=== PATIENT | male | born 1950 | race Hispanic/Latino ===

== ENCOUNTER 2020-10-14 18:16 | Observation (INO) | payer OTHER, MEDICARE ==
[~2020-10-14] VITALS: Ht 167.6 cm; Wt 98.5 kg
[2020-10-14] MEDS ORDERED: NITROGLYCERIN 1GM/1 INCH PACKET TD ONE ×2 (18:49→21:00)
[2020-10-14] MEDS ORDERED: ASPIRIN 325 MG TABLET ONE (18:49)
[2020-10-14] MEDS ORDERED: NIFEDIPINE 10 MG CAP ONE (18:50)
[2020-10-14 18:52] LABS: APPEARANCE,URINE Clear (CLEAR); BILIRUBIN,URINE Negative (NEGATIVE); COLOR,URINE Yellow (YELLOW); GLUCOSE, URINE (UA) TRACE mg/dL (NEGATIVE); KETONES,URINE Negative (NEGATIVE); LEUKOCYTE ESTERASE ,URINE Negative (NEGATIVE); NITRATE,URINE Negative (NEGATIVE); OCCULT BLOOD,URINE Negative (NEGATIVE); PH,URINE 7.5 (5.0-8.0); PROTEIN,URINE Negative (NEGATIVE)
[2020-10-14 19:07] LABS: BASOPHILS % (AUTO) 0.8 % (0.0-5.0); EOSINOPHILS % (AUTO) 4.9 % (0.0-8.0); HEMATOCRIT 41.6 % (42-54); LYMPHOCYTES % (AUTO) 32.2 % (21.0-51.0); MEAN CORPUSCULAR HEMOGLOBIN 31.7 pg (27.0-33.0); MEAN CORPUSCULAR HGB CONC 35.3 g/dL (32.0-36.0); MEAN CORPUSCULAR VOLUME 89.7 fL (79-99); MONOCYTES % (AUTO) 8.4 % (3.0-13.0); NEUTROPHILS % (AUTO) 52.7 % (40.0-77.0); PLATELET COUNT (AUTO) 199 K/uL (130-400); RED BLOOD CELL COUNT(AUTO) 4.64 MIL/uL (4.50-6.20); RED CELL DISTRIBUTION WIDTH 12.2 % (11.0-15.5); WHITE BLOOD COUNT (AUTO) 10.5 K/uL (4.8-10.8)
[2020-10-14 19:11] LABS: BACTERIA,URINE None Seen /HPF (None Seen); MUCUS,URINE Few LPF (None Seen); RBC,URINE 0-1 /HPF (0-1); SQUAMOUS EPITHELIAL CELL,UR Few /HPF (0-2); WBC,URINE 0-1 /HPF (0-1)
[2020-10-14 19:14] LABS: CREATININE 1.4 mg/dL (0.5-1.5); POTASSIUM 3.9 mmol/L (3.5-5.1)
[2020-10-14 19:23] LABS: PROTHROMBIN TIME 10.9 SEC (9.6-11.6)
[2020-10-14 19:26] LABS: ALBUMIN 3.7 g/dL (3.5-5.0); BILIRUBIN,TOTAL 0.8 mg/dL (0.2-1.0); TOTAL PROTEIN, SERUM 8.1 g/dL (6.0-8.3)
[2020-10-14 19:43] LABS: B-TYPE NATRIURETIC PEPTIDE 18 pg/mL (0-100)
[2020-10-14] MEDS ORDERED: ONDANSETRON HCL 4 MG/2 ML VIAL IV PRN (20:45)
[2020-10-14] MEDS ORDERED: LACTULOSE 20 GM/30 ML UDCUP PO PRN (20:45)
[2020-10-14] MEDS: NITROGLYCERIN 1GM/1 INCH PACKET TD SCH (20:45)
[2020-10-14] MEDS ORDERED: HYDRALAZINE HCL 20 MG/ML VIAL IV PRN (20:45)
[2020-10-14] MEDS ORDERED: ACETAMINOPHEN 325 MG TAB PO PRN ×2 (20:45)
[2020-10-14 20:58] LABS: HEMOGLOBIN A1C 7.6 % (4.0-6.0)
[2020-10-14] MEDS ORDERED: FAMOTIDINE 20MG TAB 20 MG TAB ONE (20:59)
[2020-10-14] MEDS: METOPROLOL TARTRATE 25 MG TAB PO SCH (21:00)
[2020-10-14] MEDS ORDERED: METOPROLOL TARTRATE 25 MG TAB ONE (21:00)
[2020-10-14] MEDS: INSULIN HUMULIN R 100 UNIT/ML 3ML SQ SCH (21:00)
[2020-10-14 21:05] LABS: MAGNESIUM 1.7 mg/dL (1.80-2.40); THYROID STIMULATING HORMONE 4.59 uIU/mL (0.36-3.74)
[2020-10-14] MEDS ORDERED: MAGNESIUM 2GM PREMIX 50ML 50 ML IV PRN (21:30)
[2020-10-14] MEDS ORDERED: MAGNESIUM 2GM PREMIX 50ML 50 ML IV ONE (23:28)
[2020-10-15 02:30] VITALS: BP 147/89
[2020-10-15] MEDS ORDERED: METF-444 PO (02:48)
[2020-10-15] MEDS ORDERED: ATOR20TA65 PO (02:48)
[2020-10-15] MEDS ORDERED: LOSA50TA64 PO (02:48)
[2020-10-15] MEDS ORDERED: ASPI-1197 PO (02:48)
[2020-10-15 03:58] VITALS: BP 146/91
[2020-10-15] MEDS: NITROGLYCERIN 1GM/1 INCH PACKET TD SCH (05:22)
[2020-10-15] MEDS: INSULIN HUMULIN R 100 UNIT/ML 3ML SQ SCH ×2 (06:25→11:30)
[2020-10-15 06:50] LABS: BASOPHILS % (AUTO) 0.8 % (0.0-5.0); EOSINOPHILS % (AUTO) 4.7 % (0.0-8.0); HEMATOCRIT 40.8 % (42-54); LYMPHOCYTES % (AUTO) 31.8 % (21.0-51.0); MEAN CORPUSCULAR HEMOGLOBIN 30.7 pg (27.0-33.0); MEAN CORPUSCULAR HGB CONC 34.3 g/dL (32.0-36.0); MEAN CORPUSCULAR VOLUME 89.5 fL (79-99); MONOCYTES % (AUTO) 9.3 % (3.0-13.0); NEUTROPHILS % (AUTO) 52.9 % (40.0-77.0); PLATELET COUNT (AUTO) 192 K/uL (130-400); RED BLOOD CELL COUNT(AUTO) 4.56 MIL/uL (4.50-6.20); RED CELL DISTRIBUTION WIDTH 12.3 % (11.0-15.5); WHITE BLOOD COUNT (AUTO) 8.3 K/uL (4.8-10.8)
[2020-10-15 07:02] LABS: CREATININE 1.2 mg/dL (0.5-1.5); POTASSIUM 4.3 mmol/L (3.5-5.1)
[2020-10-15 07:30] VITALS: BP 150/89
[2020-10-15] MEDS ORDERED: FAMOTIDINE 20MG TAB 20 MG TAB PO SCH (09:00)
[2020-10-15] MEDS ORDERED: ENOXAPARIN SODIUM 40 MG/0.4 ML SYRINGE SQ SCH (09:00)
[2020-10-15] MEDS ORDERED: ASPIRIN 81MG TAB.CHEW PO SCH (09:00)
[2020-10-15] MEDS: METOPROLOL TARTRATE 25 MG TAB PO SCH (10:03)
[2020-10-15 11:00] VITALS: BP 151/92
[2020-10-15] MEDS ORDERED: HYDROCHLOROTHIAZIDE 25 MG TABLET PO SCH (12:45)
[2020-10-15] MEDS ORDERED: LISINOPRIL 20 MG TABLET PO SCH (12:45)
[2020-10-15] MEDS ORDERED: METO25 PO (12:59)
[2020-10-15] MEDS ORDERED: ATORVASTATIN CALCIUM 20 MG TABLET PO SCH (21:00)
== END 2020-10-15 15:40 | disposition home or self-care (01) ==
LOC: EDH 18:16 → EDHIP 20:35 → 3BH 10-15 02:14
PROVIDERS: ADMIT Internal Medicine; ATTEND Internal Medicine
DX: R07.89 Other chest pain (principal); Z20.822 Contact with and (suspected) exposure to COVID-19; I16.1 Hypertensive emergency; E11.9 Type 2 diabetes mellitus without complications; I10 Essential (primary) hypertension; E83.42 Hypomagnesemia; E78.5 Hyperlipidemia, unspecified; R42 Dizziness and giddiness; R94.6 Abnormal results of thyroid function studies; E78.00 Pure hypercholesterolemia, unspecified; Z79.84 Long term (current) use of oral hypoglycemic drugs; Z79.899 Other long term (current) drug therapy; W01.198A Fall on same level from slipping, tripping and stumbling with subsequent striking against other object, initial encounter; Y93.89 Activity, other specified; Y92.89 Other specified places as the place of occurrence of the external cause
CPT/HCPCS: 36415 ×2; 70450; 71045; 80048; 80053; 80061; 81001; 82550; 82948 ×2; 83036; 83690; 83735; 83880; 84443; 84484 ×3; 85025 ×2; 85610; 85730; 87426; 93005 ×3; 96372; 99285; G0378 ×18; J1815; J3475; U0003

== ENCOUNTER → 2021-01-04 | Outpatient (CLI) | payer OTHER, MEDICARE ==
[~2021-01-04] MED LIST: ASPI-1197 PO; ATOR20TA65 PO; LOSA50TA64 PO; METF-444 PO; METO25 PO
== END | disposition home or self-care (01) ==
LOC: RAH 09:49
PROVIDERS: ATTEND Internal Medicine Cardiovascular Disease
DX: R01.1 Cardiac murmur, unspecified (principal)
CPT/HCPCS: 93306; 93356

== ENCOUNTER 2021-04-08 20:39 | Emergency (ER) | payer OTHER, MEDICARE ==
[~2021-04-08] VITALS: Ht 160 cm; Wt 90.7 kg
[2021-04-08] MEDS ORDERED: CLONIDINE HCL 0.1 MG TABLET ONE (21:40)
[2021-04-08 21:54] LABS: MEAN CORPUSCULAR HEMOGLOBIN 30.8 pg (27.0-33.0); MEAN CORPUSCULAR HGB CONC 35.3 g/dL (32.0-36.0); MEAN CORPUSCULAR VOLUME 87.2 fL (79-99); PLATELET COUNT (AUTO) 184 K/uL (130-400); RED BLOOD CELL COUNT(AUTO) 4.13 MIL/uL (4.50-6.20); RED CELL DISTRIBUTION WIDTH 12.4 % (11.0-15.5); WHITE BLOOD COUNT (AUTO) 8.9 K/uL (4.8-10.8)
[2021-04-08 22:12] LABS: BAND NEUTROPHILS % (MANUAL) 2 % (0-2); EOSINOPHILS % (MANUAL) 6 % (1-6); LYMPHOCYTES % (MANUAL) 19 % (22-44); MAN.DIFF COMMENT-IMPRESSION MANUAL DIFFERENTIAL; MONOCYTES % (MANUAL) 4 % (2-9); REACTIVE LYMPHOCYTES 3 % (0-0); SEGMENTED NEUTROPHILS % 66 % (40-70)
[2021-04-08 22:13] LABS: PLATELET MORPHOLOGY COMMENT LARGE PLTS PRESENT
[2021-04-08 22:20] LABS: CREATININE 1.4 mg/dL (0.5-1.5); POTASSIUM 3.5 mmol/L (3.5-5.1)
[2021-04-08 22:25] LABS: ALBUMIN 3.4 g/dL (3.5-5.0); BILIRUBIN,TOTAL 0.4 mg/dL (0.2-1.0); TOTAL PROTEIN, SERUM 7.4 g/dL (6.0-8.3)
[2021-04-09 00:09] VITALS: BP 176/84
== END 2021-04-09 00:11 | disposition home or self-care (01) ==
LOC: EDH 20:39
DX: I10 Essential (primary) hypertension (principal); E11.9 Type 2 diabetes mellitus without complications; E78.00 Pure hypercholesterolemia, unspecified; Z79.899 Other long term (current) drug therapy
CPT/HCPCS: 36415; 80053; 85025